=== PATIENT | male | born 1940 | race Caucasian/White ===

== ENCOUNTER 2020-07-22 05:12 | Day surgery (SDC) | payer MEDICARE ==
[~2020-07-22] VITALS: Ht 185.4 cm; Wt 98.0 kg
[2020-07-22] VITALS (8 sets, daily range): BP systolic 115–137; BP diastolic 59–73
[~2020-07-22 05:12] MED LIST: ASPI-1009 PO; GLUC1CAP36 PO; LISI-234 PO; OMEG1CAP2 PO; PANT40TA4 PO; PRAV10TA39 PO
[2020-07-22] MEDS ORDERED: LORazepam 0.5 MG tablet PO PRN (05:30)
[2020-07-22] MEDS ORDERED: normal saline 1,000 ML IV SCH ×2 (05:30→07:50)
[2020-07-22] MEDS ORDERED: diphenhydrAMINE 25mg capsule PO PRN (05:30)
[2020-07-22] MEDS ORDERED: LIDOcaine/PRILOcaine 5gm cream TP ONE (05:35)
[2020-07-22] MEDS ORDERED: ATOR-2 PO (05:39)
[2020-07-22] MEDS ORDERED: RIVA20TA PO (05:39)
[2020-07-22] MEDS ORDERED: ALLO100T PO (05:39)
[2020-07-22] MEDS ORDERED: CHLO25TA10 PO (05:39)
[2020-07-22] MEDS ORDERED: FLO0.4C PO (05:39)
[2020-07-22] MEDS ORDERED: CLOB30CR11 (05:39)
[2020-07-22] MEDS ORDERED: DILT180C87 PO (05:39)
[2020-07-22] MEDS ORDERED: VIT1CAPS9 PO (05:39)
[2020-07-22] MEDS ORDERED: verapamil 2.5 mg/ml inj IV ONE (06:05)
[2020-07-22] MEDS ORDERED: nitroGLYCERIN-Tridil 50MG/D5W 250 ML IV ONE (06:05)
[2020-07-22] MEDS ORDERED: iohexol 350MG/ML 100ml bottle IV ONE (06:06)
[2020-07-22] MEDS ORDERED: fentaNYL/PF 50MCG/1 ML 2ML syringe ONE (06:06)
[2020-07-22] MEDS ORDERED: LIDOcaine 1% (10mg/ml)w/preservative injection 20ml MDV ONE (06:06)
[2020-07-22] MEDS ORDERED: midazolam 2 mg/2 ml injection ONE (06:06)
[2020-07-22] MEDS ORDERED: heparin 1,000unit/ml 10ml vial 10 ML ONE (06:06)
[2020-07-22 06:08] LABS: BASOPHILS % (AUTO) 0.3 % (0-1); EOSINOPHILS # (AUTO) 0.1 X10'3 (0-0.9); EOSINOPHILS % (AUTO) 1.2 % (0-6); HEMATOCRIT 36.4 % (42.0-52.0); HEMOGLOBIN 12.1 g/dl (14.0-17.9); LYMPHOCYTES # (AUTO) 1.3 X10'3 (1.1-4.8); LYMPHOCYTES % (AUTO) 23.1 % (21-51); MEAN CORPUSCULAR HEMOGLOBIN 32.6 PG (27.0-31.0); MEAN CORPUSCULAR HGB CONC 33.2 g/dL (33.0-36.5); MEAN CORPUSCULAR VOLUME 98.1 FL (78-98); MEAN PLATELET VOLUME 8.1 FL (7.4-10.4); MONOCYTES # (AUTO) 0.6 X10'3 (0-0.9); NEUTROPHILS # (AUTO) 3.6 X10'3 (1.8-7.7); NEUTROPHILS % (AUTO) 64.4 % (42-75); PLATELET COUNT 115 X10'3 (140-440); RED BLOOD COUNT 3.71 X10'6 (4.70-6.10); RED CELL DISTRIBUTION WIDTH 14.1 % (11.5-14.5); WHITE BLOOD COUNT 5.6 X10'3 (4.5-11.0)
[2020-07-22 06:14] LABS: PARTIAL THROMBOPLASTIN TIME 30 SECONDS (22-32)
[2020-07-22 06:15] LABS: ALBUMIN 3.5 G/DL (3.4-5.0); ANION GAP 8 (8-16); BLOOD UREA NITROGEN 25 MG/DL (7-18); BUN/CREATININE RATIO 14.4 (5.4-32.0); CHLORIDE 102 MMOL/L (99-107); CREATININE 1.74 MG/DL (0.60-1.10); GLUCOSE 113 MG/DL (70-104); POTASSIUM 3.8 MMOL/L (3.5-5.1); SODIUM 138 MMOL/L (135-145); TOTAL CARBON DIOXIDE 28.5 MMOL/L (24-32); eGFR 38 ML/MIN
--- NOTE | 2020-07-22 07:30 | NUR ---
Pt back in room. Bolus being administered as ordered. Pt vs stable as charted. Pt drank 150ml juice. Denies cp, denies general pain. Will continue to monitor.l
[2020-07-22] MEDS ORDERED: HYDROcodone/acetaminophen 5mg/325mg tablet PO PRN (07:55)
[2020-07-22] MEDS ORDERED: ondansetron/PF 4mg/2ml inj IV PRN (07:55)
[2020-07-22] MEDS ORDERED: proCHLORperazine 10 MG/2 ml inj IV PRN (07:55)
[2020-07-22] MEDS ORDERED: OXAZEpam 15mg capsule PO PRN (07:55)
[2020-07-22] MEDS ORDERED: HYDROcodone/acetaminophen 10/325mg tab PO PRN (07:55)
== END 2020-07-22 11:03 | disposition home or self-care (01) ==
LOC: SSTAY O 05:12
PROVIDERS: ATTEND Internal Medicine Interventional Cardiology
DX: R94.30 Abnormal result of cardiovascular function study, unspecified (principal); I25.10 Atherosclerotic heart disease of native coronary artery without angina pectoris; J44.9 Chronic obstructive pulmonary disease, unspecified; N18.9 Chronic kidney disease, unspecified; I12.9 Hypertensive chronic kidney disease with stage 1 through stage 4 chronic kidney disease, or unspecified chronic kidney disease; I25.5 Ischemic cardiomyopathy; Z79.899 Other long term (current) drug therapy
CPT/HCPCS: 36415; 80048; 85025; 85610; 85730; 93005; 93458; 99152; 99153; C1769; C1894; J1644; J2001; J2250; J3010; J7030; Q0163; Q9967; A4620; A5120; J3490

== ENCOUNTER 2021-10-05 11:20 | Day surgery (SDC) | payer MEDICARE ==
[2021-10-02 10:21] LABS: CLARITY,URINE SLIGHTLY CLOUDY (Clear); COLOR,URINE YELLOW (Yellow); UA COLLECTION TYPE CLN CATCH MIDSTREAM
[2021-10-02 10:22] LABS: GLUCOSE, URINE NEGATIVE (Neg); KETONES,URINE NEGATIVE (Neg); LEUKOCYTE ESTERASE ,URINE NEGATIVE (Neg); NITRITES, URINE NEGATIVE (Neg); OCCULT BLOOD,URINE NEGATIVE (Neg); PROTEIN,URINE TRACE mg/dl (Neg); UROBILINOGEN,URINE 0.2 E.U/dL (0.2-1.0)
[2021-10-02 10:23] LABS: BASOPHILS % (AUTO) 0.3 % (0-1); EOSINOPHILS % (AUTO) 0.7 % (0-6); LYMPHOCYTES % (AUTO) 25.3 % (21-51); MEAN CORPUSCULAR HEMOGLOBIN 32.1 PG (27.0-31.0); MEAN CORPUSCULAR HGB CONC 33.3 g/dL (33.0-36.5); MEAN CORPUSCULAR VOLUME 96.5 FL (78-98); MEAN PLATELET VOLUME 7.9 FL (7.4-10.4); MONOCYTES # (AUTO) 0.4 X10'3 (0-0.9); MONOCYTES % (AUTO) 10.7 % (2-12); NEUTROPHILS # (AUTO) 2.5 X10'3 (1.8-7.7); PRE OP HEMATOCRIT 34.7 % (42.0-52.0); PRE OP HEMOGLOBIN 11.5 g/dL (14.0-17.9); PRE OP PLATELET COUNT 126 X10'3 (140-440)
[2021-10-02 10:30] LABS: PARTIAL THROMBOPLASTIN TIME 33 SECONDS (22-32); PRE OP INR 1.1 INR; PRE OP PROTIME 11.2 SECONDS (9.0-12.0)
[2021-10-02 10:33] LABS: ALBUMIN 3.4 G/DL (3.4-5.0); ALBUMIN/GLOBULIN RATIO 0.9 (1.1-1.5); ALKALINE PHOSPHATASE 93 IU/L (46-116); BLOOD UREA NITROGEN 27 MG/DL (7-18); BUN/CREATININE RATIO 15.3 (5.4-32.0); CALCIUM 8.5 MG/DL (8.5-10.1); CHLORIDE 104 MMOL/L (99-107); CREATININE 1.77 MG/DL (0.60-1.10); PRE OP ALT 23 U/L (30-65); PRE OP ANION GAP 9 (8-16); PRE OP AST 43 U/L (10-37); PRE OP GLUCOSE 102 MG/DL (70-104); PRE OP POTASSIUM 3.9 MMOL/L (3.4-5.1); PRE OP SODIUM 140 MMOL/L (135-145); TOTAL PROTEIN 7.4 G/DL (6.4-8.2); eGFR 37 ML/MIN
[2021-10-02 10:38] LABS: BACTERIA,URINE NONE SEEN /HPF (Neg); MUCUS STRANDS FEW /LPF (Neg); RBC,URINE NONE SEEN /HPF (0-2); SQUAMOUS EPITHELIAL CELL,UR FEW /LPF (FEW); WBC,URINE 0-4 /HPF (0-4)
[~2021-10-05] VITALS: Ht 182.9 cm; Wt 81.6 kg
[~2021-10-05 11:20] MED LIST changes: +ALLO100T PO; +APIX5TAB3 PO; -ASPI-1009 PO; +ATOR-2 PO; +CHLO25TA10 PO; -LISI-234 PO; -OMEG1CAP2 PO; -PANT40TA4 PO; -PRAV10TA39 PO; +VIT1CAPS9 PO; +ceFAZolin 2gm in dextrose, iso 50 ML IV ONE; +famotidine 20mg tablet PO ONE; +ringers solution, lacted 1,000 ML IV SCH
[2021-10-05 11:30] VITALS: BP 143/83
== END 2021-10-05 23:59 | disposition home or self-care (01) ==
LOC: PAS 11:20
PROVIDERS: ATTEND Surgery
DX: C34.11 Malignant neoplasm of upper lobe, right bronchus or lung (principal); Z53.8 Procedure and treatment not carried out for other reasons; I12.9 Hypertensive chronic kidney disease with stage 1 through stage 4 chronic kidney disease, or unspecified chronic kidney disease; N18.30 Chronic kidney disease, stage 3 unspecified; E78.5 Hyperlipidemia, unspecified; I25.10 Atherosclerotic heart disease of native coronary artery without angina pectoris; I65.23 Occlusion and stenosis of bilateral carotid arteries; Z79.01 Long term (current) use of anticoagulants; Z79.899 Other long term (current) drug therapy; Z85.46 Personal history of malignant neoplasm of prostate; Z20.822 Contact with and (suspected) exposure to COVID-19
CPT/HCPCS: 36415; 71046; 80053; 81001; 82948; 85025; 85610; 85730; 87635; 93005; 94010; 94760; C9803; J7120